=== PATIENT | male | born 1960 | race Caucasian/White ===

== ENCOUNTER 2019-02-07 10:55 | Emergency (ER) | payer BC ==
[~2019-02-07] VITALS: Ht 152.4 cm; Wt 72.6 kg
--- NOTE | 2019-02-07 11:00 | NUR ---
[id number] C/O RIGHT SHOULDER PAIN S/P FALL FROM 6FT LADDER, TO ER BED 11, HOOKED TO MONITOR, CHANGED TO GOWN, AWAITING MD MARTINES.
[2019-02-07] MEDS ORDERED: PROPOFOL 20 ML IV ONE (11:12)
--- NOTE | 2019-02-07 11:20 | NUR ---
PATIENT SIGNED CONSENT FOR RIGHT SHOULDER CLOSED REDUCTION UNDER MODERATE SEDATION.
--- NOTE | 2019-02-07 11:24 | NUR ---
RT PRESENT AT BEDSIDE FOR CONSCIOUS SEDATION. AT 11:18 PT PLACED ON 2LPM NASAL CANNULA SPO2 @ 100% HR 60. PT REMAINED STABLE T/OUT THE PROCEDURE, SPO2 REMAINED 92-100% ON SUPPLEMENTAL O2. AT 11:25 PT AROUSABLE, RESPONDS TO NAME. SPO2 100% ON 2LPM NASAL CANNULA, HR 49
--- NOTE | 2019-02-07 11:27 | NUR ---
PATIENT AWAKE, ALERT AND ORIENTED. VITALS STABLE. WILL CONTINUE TO MONITOR.
[2019-02-07] MEDS ORDERED: PROPOFOL 200 MG/20 ML VIAL IV ONE (11:30)
[2019-02-07] MEDS ORDERED: IBUPROFEN 600 MG TABLET PO ONE ×2 (12:13→12:30)
[2019-02-07] MEDS ORDERED: HYDROCODONE/APAP 5/325MG 1 EACH TABLET ONE (12:13)
[2019-02-07] MEDS ORDERED: HYDROCODONE/APAP 5/325MG 1 EACH TABLET PO ONE (12:30)
--- NOTE | 2019-02-07 12:30 | NUR ---
IV removed. Catheter intact and site benign. Pressure and 4x4 applied to site. No bleeding noted. Patient assisted to waiting room in stable condition. mother will picker and packer the patient. Written and verbal after care instructions given. Patient verbalizes understanding of instruction. INSTRUCTED PATIENT NOT TO DRIVE.
[2019-02-07 12:32] VITALS: BP 134/71
== END 2019-02-07 12:32 | disposition home or self-care (01) ==
LOC: ER 10:58
DX: S43.084A Other dislocation of right shoulder joint, initial encounter (principal); W11.XXXA Fall on and from ladder, initial encounter; Y93.89 Activity, other specified; Y92.89 Other specified places as the place of occurrence of the external cause; Y99.8 Other external cause status
CPT/HCPCS: 23650; 73030 ×2; 99152; 99285; J2704; J7030; G0500